=== PATIENT | female | born 1950 | race Caucasian/White ===

== ENCOUNTER 2017-09-25 16:07 | Inpatient (IN) | payer OTHER ==
[2017-09-25] VITALS (12 sets, daily range): BP systolic 99–143; BP diastolic 47–80
[~2017-09-25] VITALS: Ht 162.6 cm; Wt 65.8 kg
--- NOTE | ~2017-09-25 | H ---
[facility] [place] [address] HISTORY AND PHYSICAL Name: MANSI CEDENO Room #: 241-P [facility] IN .R.#: [id number] Admission: 09/25/17 Attend Phys: Reginaldo Hansen MD, Discharge: 09/27/17 Date of : 46 Report #: [id number] THIS REPORT FOR: //name// CC: Dr. Alon Sanchez The patient probably will be in the ICU. HISTORY OF PRESENT ILLNESS: The patient is a 67-year-old female well known to myself, Dr. Casarez and Dr. Sanchez in [place]. She comes in today with a 3-4 day history of acute worsening of her lower extremity pain. Decrease in temperature has been somewhat cool since , which is now 4 days ago. The patient has a history of left SFA atherectomy and stent placement, coated balloon angioplasty. On the right, this was also done for complete occlusion of the vessel. Has known occlusion of the right peroneal and 2-vessel runoff on the left. The CTA from [facility] yesterday showed complete occlusion of the right SFA stent with refilling of the popliteal artery. Constant pain has been occurring, worse at night with some numbness, although she does have some movement. She continues to smoke. She has been compliant with her medications. Also, has documented coronary artery disease with prior RCA and LAD stents. Had a negative nuclear stress test done fairly recently showing no significant ischemia. MEDICATIONS: Have been albuterol, amlodipine, aspirin, Plavix, lisinopril, gabapentin, methocarbamol, lisinopril 20, metoprolol 25, omeprazole, Compazine, simvastatin 20, tramadol, triamcinolone, Cipro. PAST MEDICAL HISTORY: Positive for coronary artery disease, peripheral vascular disease, hypertension, hypercholesterolemia, COPD, continued tobacco, carpal tunnel, cholecystectomy, cyst removal, and hysterectomy. SOCIAL HISTORY: Continue to smoke and occasional few drinks a week. She is retired. ALLERGIES: No known drug allergies. FAMILY HISTORY: Positive for premature coronary artery disease. REVIEW OF SYSTEMS: Essentially negative except for stated above, some intermittent constipation issues. PHYSICAL EXAMINATION: GENERAL: She is pleasant, alert. She is in no acute distress, but uncomfortable right lower extremity. VITAL SIGNS: Blood pressure 138/70, pulse 80s. HEENT: Eyes reveal xanthelasmas. Pharynx is clear. [facility] [address] [place] [address] HISTORY AND PHYSICAL Name: MANSI CEDENO Room #: 241-P [facility] IN [facility]#: [id number] Admission: 09/25/17 Attend Phys: Reginaldo Hansen MD, Discharge: 09/27/17 Date of : 46 Report #: [id number] NECK: Shows preserved upstrokes without JVD or bruits. LUNGS: Prolonged expiratory phase, but clear. CARDIOVASCULAR: Regular rate and rhythm, S1, S2 distant. ABDOMEN: Soft. No HSM or abdominal bruit. EXTREMITIES: Reveal no edema. Distal pulses, I cannot palpate the right lower extremity distal pulse and it is somewhat cool, although she does have sensation of touch. NEUROLOGIC: Nonfocal. She ambulates with a limp because of the pain in the right foot. The left lower extremity has 2+ pulses. SKIN: Warm and dry without xanthoma or ulcer. ASSESSMENT: 1. Subacute right lower extremity limb arterial occlusion. 2. Coronary artery disease, stable. 3. Hypertension. 4. Hypercholesterolemia. 5. Continued tobacco, chronic obstructive pulmonary disease. 6. Degenerative joint disease. RECOMMENDATIONS AND PLAN: The patient will proceed emergently to the [facility]. Dr. Casarez will attempt urgent intervention to the right lower extremity, I suspect with lytic therapy and hopeful for recanalization of this right SFA. We will obtain stat labs, which are pending. Risks, benefits, alternatives were discussed with the patient. She does elect to proceed on. Thank you for asking me to assist in the care of this patient. <ELECTRONICALLY SIGNED> By: Reginaldo Hansen MD, FACC 10/10/17 0844 [id number] Reginaldo Hansen MD, FACC /nt
[2017-09-25] MEDS ORDERED: UNICOMPLEX M TA1 TA1 PO (16:51)
[2017-09-25] MEDS ORDERED: VENTOLIN HFA INH8 GM INH (16:52)
[2017-09-25] MEDS ORDERED: TOPROL XL25 MG PO (16:53)
[2017-09-25] MEDS ORDERED: COMPAZINE10 MG PO (16:55)
[2017-09-25] MEDS ORDERED: NEURONTIN 300300 M1 PO (16:57)
[2017-09-25] MEDS ORDERED: AMLODIPINE BESY10 MG PO (16:57)
[2017-09-25] MEDS ORDERED: ROBAXIN 750 MG750 M1 PO (16:57)
[2017-09-25] MEDS ORDERED: PLAVIX 75 MG TA75 MG PO (16:58)
[2017-09-25] MEDS ORDERED: TRAMADOL 50 MG50 MG PO (16:58)
[2017-09-25] MEDS ORDERED: LASIX 20 MG TAB20 MG PO (16:59)
[2017-09-25] MEDS ORDERED: ZOCOR20 MG PO (16:59)
[2017-09-25] MEDS ORDERED: PRINIVIL20 MG PO (17:00)
[2017-09-25] MEDS ORDERED: CIPRO500 M1 PO (17:00)
[2017-09-26] VITALS (35 sets, daily range): BP systolic 87–160; BP diastolic 45–90
[2017-09-26] MEDS ORDERED: POTASSIUM CHLOR8 MEQ PO (02:47)
[2017-09-26] MEDS ORDERED: CITRACAL + D E1 EACH PO (02:50)
[2017-09-26] MEDS ORDERED: NYSTATIN15 G1 TOP (02:50)
[2017-09-26] MEDS ORDERED: PENLAC6.6 ML TOP (02:52)
[2017-09-26] MEDS ORDERED: TRIAMCINOLONE A80 G2 TOP (02:54)
[2017-09-26 04:00] LABS: HEMATOCRIT 36.8 % (37.0-47.0); HEMOGLOBIN 12.3 gm/dL (12.0-15.0); MCH 29.9 pg (26.0-34.0); MCHC 33.3 g/dL (28.0-37.0); MCV 89.7 fL (80.0-100.0); RBC 4.1 mil/uL (4.20-5.00); RDW 14.1 % (10.5-14.5); WBC 5.9 thou/uL (4.0-11.0)
[2017-09-26 04:05] LABS: APTT 28.9 Seconds (24.5-32.8); FIBRINOGEN 213.1 mg/dL (210-360)
[2017-09-26 04:07] LABS: CALCIUM 8.8 mg/dL (8.5-10.1); CREATININE 0.7 mg/dL (0.6-1.0); POTASSIUM 4.1 mmol/L (3.5-5.1)
[2017-09-27] VITALS (18 sets, daily range): BP systolic 115–155; BP diastolic 50–69
[2017-09-27] MEDS ORDERED: CLOPIDOGREL75 MG PO (07:59)
[2017-09-27] MEDS ORDERED: ELIQUIS5 MG PO ×2 (07:59)
== END 2017-09-27 09:30 | disposition home or self-care (01) | DRG 254 ==
LOC: 2N 16:07 → ICU 16:07 → ENTRNSPT 09-27 10:26 → CMPTRNSPT 09-27 10:27
PROVIDERS: Nuclear Medicine Nuclear Cardiology
PROC: 3E05317 Introduction of Other Thrombolytic into Peripheral Artery, Percutaneous Approach (ICD-10-PCS; principal; 2017-09-26)
PROC: B4181ZZ Fluoroscopy of Bilateral Renal Arteries using Low Osmolar Contrast (ICD-10-PCS; 2017-09-26)
PROC: 047 Lower Arteries, Dilation (ICD-10-PCS; 2017-09-26)
DX: I77.1 Stricture of artery (principal); M19.90 Unspecified osteoarthritis, unspecified site; I25.10 Atherosclerotic heart disease of native coronary artery without angina pectoris; I73.9 Peripheral vascular disease, unspecified; I10 Essential (primary) hypertension; E78.00 Pure hypercholesterolemia, unspecified; J44.9 Chronic obstructive pulmonary disease, unspecified; Z90.49 Acquired absence of other specified parts of digestive tract; Z82.49 Family history of ischemic heart disease and other diseases of the circulatory system; Z90.710 Acquired absence of both cervix and uterus; Z79.899 Other long term (current) drug therapy
CPT/HCPCS: 10078

== ENCOUNTER 2017-11-02 08:51 | Inpatient (IN) | payer OTHER ==
[2017-11-02] VITALS (16 sets, daily range): BP systolic 91–147; BP diastolic 49–74
[~2017-11-02] VITALS: Ht 162.6 cm; Wt 66.2 kg
[~2017-11-02 08:51] MED LIST: AMLODIPINE BESY10 MG PO; CIPRO500 M1 PO; CITRACAL + D E1 EACH PO; CLOPIDOGREL75 MG PO; COMPAZINE10 MG PO; ELIQUIS5 MG PO; LASIX 20 MG TAB20 MG PO; NEURONTIN 300300 M1 PO; NYSTATIN15 G1 TOP; PENLAC6.6 ML TOP; PLAVIX 75 MG TA75 MG PO; POTASSIUM CHLOR8 MEQ PO; PRINIVIL20 MG PO; ROBAXIN 750 MG750 M1 PO; TOPROL XL25 MG PO; TRAMADOL 50 MG50 MG PO; TRIAMCINOLONE A80 G2 TOP; UNICOMPLEX M TA1 TA1 PO; VENTOLIN HFA INH8 GM INH; ZOCOR20 MG PO
[2017-11-02 11:44] LABS: ABSOLUTE NEUTROPHILS 5.9 thou/uL (1.4-8.2); BASOPHILS 0.6 % (0.0-2.0); EOSINOPHILS 1.6 % (0.0-3.0); HEMATOCRIT 34.9 % (37.0-47.0); HEMOGLOBIN 11.8 gm/dL (12.0-15.0); LYMPHOCYTES 34.5 % (24.0-44.0); MANUAL DIFF NO; MCH 30.5 pg (26.0-34.0); MCHC 33.9 g/dL (28.0-37.0); MCV 89.9 fL (80.0-100.0); PLATELET COUNT 253 thou/uL (150-400); POLYS 56.3 % (36.0-66.0); RBC 3.88 mil/uL (4.20-5.00); RDW 13.7 % (10.5-14.5); WBC 10.4 thou/uL (4.0-11.0)
[2017-11-02 11:57] LABS: APTT 26.6 Seconds (24.5-32.8); PROTIME 9.9 Seconds (9.3-11.4)
[2017-11-02 12:07] LABS: CALCIUM 9.4 mg/dL (8.5-10.1); CREATININE 0.8 mg/dL (0.6-1.0); POTASSIUM 4.2 mmol/L (3.5-5.1)
[2017-11-03] VITALS (22 sets, daily range): BP systolic 92–127; BP diastolic 37–74
[2017-11-03 05:52] LABS: HEMATOCRIT 33.9 % (37.0-47.0); HEMOGLOBIN 11.4 gm/dL (12.0-15.0); MCH 30.6 pg (26.0-34.0); MCHC 33.7 g/dL (28.0-37.0); MCV 90.8 fL (80.0-100.0); RBC 3.73 mil/uL (4.20-5.00); RDW 13.9 % (10.5-14.5); WBC 8.6 thou/uL (4.0-11.0)
[2017-11-03 05:56] LABS: CALCIUM 8.5 mg/dL (8.5-10.1); CREATININE 0.8 mg/dL (0.6-1.0); POTASSIUM 4.3 mmol/L (3.5-5.1)
[2017-11-03 13:42] LABS: HEMATOCRIT 36.2 % (37.0-47.0); HEMOGLOBIN 11.9 gm/dL (12.0-15.0); MCH 29.9 pg (26.0-34.0); MCHC 32.9 g/dL (28.0-37.0); MCV 90.9 fL (80.0-100.0); RBC 3.98 mil/uL (4.20-5.00); RDW 13.4 % (10.5-14.5); WBC 11.1 thou/uL (4.0-11.0)
[2017-11-03 13:55] LABS: APTT 28.2 Seconds (24.5-32.8)
[2017-11-04] VITALS (16 sets, daily range): BP systolic 90–113; BP diastolic 36–86
[2017-11-04 03:51] LABS: HEMATOCRIT 32.3 % (37.0-47.0); MCH 30.6 pg (26.0-34.0); MCV 89.9 fL (80.0-100.0); RBC 3.59 mil/uL (4.20-5.00); RDW 13.6 % (10.5-14.5); WBC 10.4 thou/uL (4.0-11.0)
[2017-11-04 13:02] LABS: APTT 57.1 Seconds (24.5-32.8); INR 1.3; PROTIME 13.6 Seconds (9.3-11.4)
[2017-11-05 03:28] LABS: APTT 50.6 Seconds (24.5-32.8); INR 1.4; PROTIME 14.4 Seconds (9.3-11.4)
[2017-11-05 04:18] VITALS: BP 121/53
[2017-11-05 07:10] VITALS: BP 110/47
[2017-11-05] MEDS ORDERED: METOPROLOL SUCC25 M1 PO (08:10)
[2017-11-05] MEDS ORDERED: PLAVIX 75 MG TA75 M1 PO (08:10)
[2017-11-05] MEDS ORDERED: COUMADIN 5 MG TA5 M1 PO (08:10)
[2017-11-05] MEDS ORDERED: TOPROL XL25 MG PO (08:14)
[2017-11-05] MEDS ORDERED: LASIX 20 MG TAB20 MG PO (08:14)
[2017-11-05] MEDS ORDERED: CITRACAL + D E1 EACH PO (08:14)
[2017-11-05] MEDS ORDERED: PRINIVIL20 MG PO (08:14)
[2017-11-05] MEDS ORDERED: NEURONTIN 300300 M1 PO ×2 (08:14)
[2017-11-05] MEDS ORDERED: ZOCOR20 MG PO (08:14)
[2017-11-05] MEDS ORDERED: ENOXAPARIN80 MG/0.1 SUBQ (08:15)
[2017-11-05 09:35] VITALS: BP 110/47
== END 2017-11-05 12:40 | disposition home or self-care (01) | DRG 272 ==
LOC: ER 08:51 → EROBS 11:16 → ICU 11:16 → EROBS 12:11 → ICU 13:45 → 2N 11-04 16:25 → ENTRNSPT 11-05 12:18 → EDTRNSPTSTS 11-05 12:21 → 2N 11-05 12:40
PROVIDERS: Emergency Medicine; Internal Medicine Cardiovascular Disease; Nuclear Medicine Nuclear Cardiology; Nurse Practitioner Gerontology
PROC: 3E05317 Introduction of Other Thrombolytic into Peripheral Artery, Percutaneous Approach (ICD-10-PCS; principal; 2017-11-02)
PROC: B4181ZZ Fluoroscopy of Bilateral Renal Arteries using Low Osmolar Contrast (ICD-10-PCS; 2017-11-02)
PROC: 04VK3DZ Restriction of Right Femoral Artery with Intraluminal Device, Percutaneous Approach (ICD-10-PCS; 2017-11-03)
DX: I70.201 Unspecified atherosclerosis of native arteries of extremities, right leg (principal); I25.10 Atherosclerotic heart disease of native coronary artery without angina pectoris; I10 Essential (primary) hypertension; E78.00 Pure hypercholesterolemia, unspecified; J44.9 Chronic obstructive pulmonary disease, unspecified; G89.29 Other chronic pain; M54.9 Dorsalgia, unspecified; F17.210 Nicotine dependence, cigarettes, uncomplicated; M19.90 Unspecified osteoarthritis, unspecified site; G62.9 Polyneuropathy, unspecified; Z71.6 Tobacco abuse counseling; Z95.5 Presence of coronary angioplasty implant and graft; Z90.49 Acquired absence of other specified parts of digestive tract; Z90.710 Acquired absence of both cervix and uterus; Z79.899 Other long term (current) drug therapy
CPT/HCPCS: 10078

== ENCOUNTER 2019-02-25 09:34 | Inpatient (IN) | payer OTHER ==
[~2019-02-25] VITALS: Ht 162.6 cm; Wt 73.5 kg
[2019-02-25] VITALS (17 sets, daily range): BP systolic 118–141; BP diastolic 40–66
[~2019-02-25 09:34] MED LIST changes: +COUMADIN 5 MG TA5 M1 PO; +ENOXAPARIN80 MG/0.1 SUBQ; +METOPROLOL SUCC25 M1 PO; +PLAVIX 75 MG TA75 M1 PO
[2019-02-25 10:32] LABS: HEMOGLOBIN 9.8 gm/dL (12.0-15.0); MCH 23.7 pg (26.0-34.0); MCHC 31.6 g/dL (28.0-37.0); MCV 74.9 fL (80.0-100.0); RBC 4.14 mil/uL (4.20-5.00); RDW 16.8 % (10.5-14.5); WBC 9.5 thou/uL (4.0-11.0)
[2019-02-25 10:42] LABS: CALCIUM 9.3 mg/dL (8.5-10.1); CREATININE 0.9 mg/dL (0.6-1.0); POTASSIUM 3.7 mmol/L (3.5-5.1)
[2019-02-25 10:46] LABS: APTT 31.9 Seconds (24.5-32.8); INR 1.3; PROTIME 13.4 Seconds (9.3-11.4)
[2019-02-25] MEDS ORDERED: LASIX 40 MG TAB40 M1 PO (11:17)
[2019-02-25] MEDS ORDERED: NEURONTIN 300300 M1 PO (11:21)
[2019-02-25] MEDS ORDERED: KETOCONAZOLE15 GM (11:24)
[2019-02-25] MEDS ORDERED: OMEPRAZOLE40 MG PO (11:29)
[2019-02-25] MEDS ORDERED: COMPAZINE10 MG PO (11:31)
[2019-02-25] MEDS ORDERED: VENTOLIN HFA INH8 GM (11:43)
[2019-02-25] MEDS ORDERED: AMLODIPINE BESY10 MG PO (11:46)
--- NOTE | 2019-02-25 18:06 | NUR ---
PATIENT TRANSFERRED FROM THE EP LAB POST PROCEDURE. ALERT AND ORIENTED X4, COMPLAINING OF PAIN IN BACK AND RIGHT LEG. RIGHT LEG COOL TO TOUCH. SINUS BRADYCARDIA ON CONGRESSIONAL REPRESENTATIVE. ON ROOM AIR, 2L WHILE ASLEEP. TOLERATING REGULAR DIET. ON BEDREST. EDUCATED NOT TO BEND LEFT LEG. PATIENT UPDATED ON THE PLAN OF CARE. NO SIGNS OF ACUTE DISTRESS NOTED AT THIS TIME. WILL CONTINUE TO MONITOR.
[2019-02-26] VITALS (95 sets, daily range): BP systolic 116–166; BP diastolic 41–114
[2019-02-26 06:01] LABS: HEMATOCRIT 29.1 % (37.0-47.0); HEMOGLOBIN 9.3 gm/dL (12.0-15.0); MCHC 31.8 g/dL (28.0-37.0); MCV 75.5 fL (80.0-100.0); RBC 3.86 mil/uL (4.20-5.00); RDW 16.7 % (10.5-14.5); WBC 10.4 thou/uL (4.0-11.0)
[2019-02-26 06:17] LABS: CALCIUM 8.5 mg/dL (8.5-10.1); CREATININE 0.9 mg/dL (0.6-1.0); POTASSIUM 4.2 mmol/L (3.5-5.1)
--- NOTE | 2019-02-26 07:24 | NUR ---
ASSUMED CARE @ 1900 02/25/19, PT ASSESSMENTS AND VSS COMPLETE PER ICU PROTOCOL, PT ALERT AND ORIENTED X 4, PT ABLE TO FOLLOW COMMANDS, MORPHINE AND HYDROCODONE GIVEN TO HER DURING THE SHIFT. PT IN SR- SB ON THE MONITOR, PT ON TPA AND INTERGRELIN RUNNING PER ORDERS. INTERGRELIN ORDER ERROR NOTED, PHARMACY CALLED TO RECTIFY, SPOKE WITH GLORIA PHARMACIST, CORRECT ORDER RESTORED. PT ON RA WHILE AWAKE AND 2L ASLEEP SATS IN THE HIGH 90'S. PT NPO AFTER MIDNIGHT, BEDPAN USED URINARY ELIMINATION. FALL PRECAUTIONS IN PLACE, BLEEDING PRECAUTIONS IN PLACE. PLAN OF CARE- CONT TO MONITOR.
[2019-02-26 12:58] LABS: INR 1.5; PROTIME 15.6 Seconds (9.3-11.4)
[2019-02-26 13:08] LABS: APTT 87.2 Seconds (24.5-32.8)
--- NOTE | 2019-02-26 22:50 | NUR ---
ASSUMED CARE OF PATIENT AT 1900. VSS. ORDERS OBTAINED TO TRANSFER TO CCU. C/O PAIN. STATES 09/04. HYDROCODONE GIVEN. SLEEPING UNTIL TRANSFERRED TO . REPORT GIVEN TO FABRIZIO GILBERT RN. ALL BELONGINGS WITH PATIETNT.
[2019-02-27 04:29] VITALS: BP 176/59
[2019-02-27 04:58] LABS: HEMATOCRIT 27.2 % (37.0-47.0); HEMOGLOBIN 8.7 gm/dL (12.0-15.0); MCV 74.9 fL (80.0-100.0); RBC 3.63 mil/uL (4.20-5.00); RDW 16.8 % (10.5-14.5); WBC 9.9 thou/uL (4.0-11.0)
[2019-02-27 05:09] LABS: INR 1.1
[2019-02-27 05:18] LABS: CALCIUM 8.8 mg/dL (8.5-10.1); CREATININE 0.8 mg/dL (0.6-1.0); POTASSIUM 3.7 mmol/L (3.5-5.1)
[2019-02-27 08:00] VITALS: BP 123/44
[2019-02-27 12:40] VITALS: BP 140/55
[2019-02-27 12:43] VITALS: BP 140/55
[2019-02-27 16:00] VITALS: BP 135/58
[2019-02-27 19:04] VITALS: BP 129/46
--- NOTE | 2019-02-27 19:35 | NUR ---
ASSUMED CARE OF PT AT SHIFT CHANGE. ASSESSMENTS CHARTED. MEDS GIVEN PER JAN. PT ALERT AND ORIENTED, VSS, C/O BACK PAIN MANAGED WITH PO AND IV MEDS. PULSES 2+ RADIAL, 2+ RIGHT DORALIS PEDIS, 1+ LEFT DORSALIS PEDIS, PALPABLE. O2 SATS WNL ON ROOM AIR, DENIES CHEST PAIN, NO S/SX OF CARD OR RESP DISTRESS NOTED. APTT LAB THIS AM-- SEE RESULTS, TITRATED PER PROTOCOL. LAST DRAW AT 1400 THERAPEUTIC PER PROTOCOL, NEXT REDRAW IN AM. HEPARIN GTT CONTINUES. PT UP SBA TO BATHROOM, TOLERATES WELL. APPETITE ADEQUATE. DENIES CONCERNS AT THIS TIME. PLAN IS FOR POSSIBLE DC IN AM. WILL CONT TO MONITOR AND FOLLOW POC.
[2019-02-28 05:42] VITALS: BP 150/55
--- NOTE | 2019-02-28 05:46 | NUR ---
ASSUMED PT'S CARE AROUND 1910; PT. ON CHAIR; NO C/O PAIN; DURING ASSESSMENT PT. C/O PAIN; PRN IV PAIN MEDICATION GIVEN; EDUCATED ABOUT PAIN MANAGEMENT; ST. UNDERSTANDING; SLEEPING DURING PAIN REASSESSMENT; L. GROIN AREA SHOWED OLD DRAINAGE; NO HEMATOMA; PULSES PRESENT; ABLE TO REST MOST OF THE NIGHT; REQUESTED PRN PAIN MEDICATION AFTER AMBULATING TO RESTROOM; ASSESSMENT CHARGED; FOLLOWING POC; ON HEPARIN GTT WITH NO CHANGE PER PROTOCOL; WILL KEEP MONITORING; WILL PASS ON REPORT.
[2019-02-28 08:00] VITALS: BP 145/61
[2019-02-28] MEDS ORDERED: CLOPIDOGREL75 MG PO (08:07)
[2019-02-28 09:01] LABS: INR 1.7; PROTIME 17.3 Seconds (9.3-11.4)
[2019-02-28] MEDS ORDERED: COUMADIN 5 MG TA5 M1 PO (09:53)
[2019-02-28 12:00] VITALS: BP 133/49
[2019-02-28 12:15] VITALS: BP 133/49
[2019-02-28 15:50] VITALS: BP 133/49
== END 2019-02-28 17:05 | disposition home or self-care (01) | DRG 254 ==
LOC: SPEC 09:34 → ICU 16:46 → 2N 02-26 22:41 → ENTRNSPT 02-28 16:11 → 2N 02-28 17:05
PROVIDERS: Nuclear Medicine Nuclear Cardiology; Nurse Practitioner Adult Health; Nurse Practitioner Gerontology; ADMIT Internal Medicine Cardiovascular Disease
PROC: B4101ZZ Fluoroscopy of Abdominal Aorta using Low Osmolar Contrast (ICD-10-PCS; principal; 2019-02-25)
PROC: B4181ZZ Fluoroscopy of Bilateral Renal Arteries using Low Osmolar Contrast (ICD-10-PCS; principal; 2019-02-25)
PROC: 047K3D1 Dilation of Right Femoral Artery with Intraluminal Device, using Drug-Coated Balloon, Percutaneous Approach (ICD-10-PCS; 2019-02-26)
PROC: 3E05317 Introduction of Other Thrombolytic into Peripheral Artery, Percutaneous Approach (ICD-10-PCS; 2019-02-26)
DX: T82.818A Embolism due to vascular prosthetic devices, implants and grafts, initial encounter (principal); I25.10 Atherosclerotic heart disease of native coronary artery without angina pectoris; I73.9 Peripheral vascular disease, unspecified; I10 Essential (primary) hypertension; E78.00 Pure hypercholesterolemia, unspecified; J44.9 Chronic obstructive pulmonary disease, unspecified; G89.29 Other chronic pain; M54.9 Dorsalgia, unspecified; M19.90 Unspecified osteoarthritis, unspecified site; E78.5 Hyperlipidemia, unspecified; I77.1 Stricture of artery; D63.8 Anemia in other chronic diseases classified elsewhere; Z71.6 Tobacco abuse counseling; Z95.5 Presence of coronary angioplasty implant and graft; Z90.49 Acquired absence of other specified parts of digestive tract; Z90.710 Acquired absence of both cervix and uterus; Z87.891 Personal history of nicotine dependence
CPT/HCPCS: 10078; 10081

== ENCOUNTER 2019-07-24 11:25 | Inpatient (IN) | payer OTHER ==
[2019-07-24] VITALS (17 sets, daily range): BP systolic 97–161; BP diastolic 41–62
[~2019-07-24] VITALS: Ht 162.6 cm; Wt 69.9 kg
[~2019-07-24 11:25] MED LIST changes: +KETOCONAZOLE15 GM; +LASIX 40 MG TAB40 M1 PO; +OMEPRAZOLE40 MG PO; +VENTOLIN HFA INH8 GM
[2019-07-24 12:16] LABS: HEMATOCRIT 26.8 % (37.0-47.0); HEMOGLOBIN 8.3 gm/dL (12.0-15.0); MCH 20.6 pg (26.0-34.0); MCHC 31.1 g/dL (28.0-37.0); MCV 66.3 fL (80.0-100.0); RBC 4.05 mil/uL (4.20-5.00); RDW 19.4 % (10.5-14.5); WBC 6.9 thou/uL (4.0-11.0)
[2019-07-24 12:24] LABS: CALCIUM 9.3 mg/dL (8.5-10.1); CREATININE 0.7 mg/dL (0.6-1.0); POTASSIUM 3.5 mmol/L (3.5-5.1); PROTIME 10.1 Seconds (9.3-11.4)
[2019-07-25] VITALS (19 sets, daily range): BP systolic 105–158; BP diastolic 39–91
--- NOTE | 2019-07-25 02:43 | NUR ---
At the start of the shift, patient was rating her RLE pain at 10/10, she was receiving IVP morphine, as ordered, with little/no pain relief, she was crying out and would not redirect. A call was placed to cardiology, orders were received, Dr Hansen did visit with the patient. Pt has been resting well over the last 4 hours. Her assessment is benign, VSS, the pt has a left femoral sheath in place, infusing alteplase and integrilin. Her RLE is warmer now, pulses are present without edema. Will continue to monitor and treat for pain as needed.
[2019-07-25 05:59] LABS: HEMOGLOBIN 6.8 gm/dL (12.0-15.0)
[2019-07-25 06:00] LABS: HEMATOCRIT 21.9 % (37.0-47.0)
[2019-07-25 06:11] LABS: CALCIUM 8.2 mg/dL (8.5-10.1); CREATININE 0.8 mg/dL (0.6-1.0); POTASSIUM 3.4 mmol/L (3.5-5.1)
[2019-07-25 08:43] LABS: HEMATOCRIT 23.3 % (37.0-47.0); HEMOGLOBIN 7.1 gm/dL (12.0-15.0); MCH 20.5 pg (26.0-34.0); MCHC 30.4 g/dL (28.0-37.0); MCV 67.4 fL (80.0-100.0); RBC 3.45 mil/uL (4.20-5.00); RDW 19.8 % (10.5-14.5)
[2019-07-25 08:51] LABS: CALCIUM 8.5 mg/dL (8.5-10.1); CREATININE 0.8 mg/dL (0.6-1.0); POTASSIUM 3.4 mmol/L (3.5-5.1)
--- NOTE | 2019-07-25 09:14 | NUR ---
Nutrition: Consult received stating "not needed". Pt admit with DVT in right leg. BMI is WNL. No recent weight changes. Regular diet ordered but being held due to pt to return to IR today to evaluate if TPA worked. Consider low risk.
--- NOTE | 2019-07-25 12:23 | NUR ---
INITIAL ASSESSMENT: Received consult due to pt living at home alone. CARLOS ENRIQUE reviewed chart. Pt was a direct admission from Dr. Hansen's office yesterday due to acute RLE art occlusion. Pt may go back to IR today and may need blood transfusion. SW met with pt at bedside. Introduced role of SW. Pt is alert/orientated x 4. Pt reports she lives at home alone in [place]. 3 steps to enter the home. No steps inside. Prior to admission, pt was independent with ADLs. Pt does have a walker to use if needed. Pt's son, dtr-in-law and grandchildren live down the road from her, and are able to assist pt if needed. Pt works 4-5 days a week at [employer]. Pt remains active and drives. Pt's PCP is Dr. Alon Sanchez. Pt has used HH in the past, but is unsure of provider. Plan is for pt to return home when medically stable. Pt's family will be able to provide transportation home. SW is following to assist as needed with discharge planning.
--- NOTE | 2019-07-25 15:32 | NUR ---
ASSUMED CARE THIS AM. AWAKE AND RESTLESS IN BED. COMPLAINING OF LOWER BACK PAIN. BLE WITH PALPABLE PULSES AND WARM AND PINK. L GROIN SHEATH WITH DRESSING CDI AND NO HEMATOMA. SR ON MONITOR. NO COMPLAINTS OF NAUSEA OR CP. INTEGRILLIN AND ALTAPACE INFUSING TO SIDEPORT OF SHEATH.
--- NOTE | 2019-07-25 15:35 | NUR ---
14:00 TRANSPORTED DOWN TO IR FOR INTERVENTION ON MONITOR WITH INTEGRILLIN INFUSING AT 1MCG/KG/MIN.
--- NOTE | 2019-07-25 16:30 | NUR ---
1545: BACK FROM IR: L GROIN SHEATH REMOVED AND CLOSED WITH FISH. SOFT WITH NO HEMATOMA. WILL INFUSE 1 UNIT OF PRBCS FOR HGB 7.1. BEDREST WITH LEFT LEG STRAIGHT UNTIL MIDNIGHT.
[2019-07-25] MEDS ORDERED: ENOXAPARIN80 MG/0.1 SUBQ (16:42)
[2019-07-26 04:48] LABS: INR 1.1; PROTIME 11.4 Seconds (9.3-11.4)
--- NOTE | 2019-07-26 05:59 | NUR ---
Pt has been resting well through the night, she does C/O low back pain, from her bedrest restriction, she has been treated twice with PO prn with good results. Pt has had a low grade temp, otherwise her vitals have been stable. The left groin sheath site dressing is C/D/I, no hematoma is noted and she has +pulses to BLE. Her assessment is benign, she voids per bedpan x 2, and is taking food and fluids well. Pt was asked about any previous use of the lovenox, she was briefly instructed and the injection was administered. The bed is in the low/locked position, the call light is within reach. Will continue to monitor.
[2019-07-26 11:03] LABS: ABSOLUTE NEUTROPHILS 7.1 thou/uL (1.4-8.2); BASOPHILS 2.1 % (0.0-2.0); EOSINOPHILS 0.3 % (0.0-3.0); HEMATOCRIT 28.7 % (37.0-47.0); HEMOGLOBIN 8.9 gm/dL (12.0-15.0); LYMPHOCYTES 21.8 % (24.0-44.0); MCH 21.4 pg (26.0-34.0); MCHC 31.2 g/dL (28.0-37.0); MCV 68.7 fL (80.0-100.0); MONOCYTES 7.8 % (1.0-8.0); PLATELET COUNT 237 thou/uL (150-400); RBC 4.17 mil/uL (4.20-5.00); RDW 20.3 % (10.5-14.5); WBC 10.4 thou/uL (4.0-11.0)
[2019-07-26 11:12] LABS: ALBUMIN 2.8 g/dL (3.4-5.0); CALCIUM 8.2 mg/dL (8.5-10.1); CREATININE 0.7 mg/dL (0.6-1.0); POTASSIUM 3.7 mmol/L (3.5-5.1); TOTAL BILIRUBIN 0.6 mg/dL (<0.1-1.0); TOTAL PROTEIN 5.9 g/dL (6.4-8.2)
[2019-07-26 11:35] LABS: ANISOCYTOSIS 2+; HYPOCHROMASIA 2+; MICROCYTES 2+; POLYCHROMASIA OCCASIONAL
--- NOTE | 2019-07-26 16:31 | NUR ---
PT IS AWAKE AND ALERT AND ORIENTED X4. LUNGS ARE DIMINISHED ON 2LITERS NASAL CANULA. SINUS RHYTHM ON THE DISTRICT LOSS PREVENTION MANAGER . ON A REGULAR DIET. USES THE BEDPAN TO VOID. TEMPERATURE NOTED AND BLOOD CULTURES OBTAINED. LEFT GROIN SITE IS DRY AND INTACT. FEET ARE WARM PULSES PRESENT. COMPLAINS OF BACK PAIN AND GROIN PAIN. PAIN MEDS GIVEN SEE MAR FOR TIME OF ADMINISRATION. WILL CONTINUE TO ASSESS AND MONITOR PER NURSING. DR. AYALA AWARE OF PT'S TEMP AND PENDING CULTURES.
--- NOTE | 2019-07-26 23:43 | NUR ---
2330 PT ARRIVED FROM ICU A TRANSFER. IN STABLE CONDITION. PT ORIENTED TO ROOM, PLACED ON TELEMETRY AND ASSUMED CARE. PT JUST SIGNED CONSENTS FOR TELE INTERFERENCE ACKNOWLEGMENT AND A COUPLE OTHERS.
[2019-07-26 23:58] VITALS: BP 132/65
[2019-07-27 03:20] VITALS: BP 139/64
--- NOTE | 2019-07-27 06:18 | NUR ---
PT RESTING IN BED HAS BEEN IN AND OUT OF SLEEP. PT WAS TRANSFERED IN MIDDLE OF NIGHT FROM ICU. SR ON MONITOR. LEFT GROIN SITE CDI, SOFT. REQUIRED ONE DOSE OF PAIN MEDICATION FOR LOWER EXT.
[2019-07-27 07:12] VITALS: BP 139/48
[2019-07-27 07:23] LABS: INR 1.5; PROTIME 15.7 Seconds (9.3-11.4)
--- NOTE | 2019-07-27 08:19 | NUR ---
PATIENT CARE ASSUMED, ASSESSMENT CHARTED, VSS, ALERT AND ORIENTED X 4, UP TO BEDSIDE COMMMODE AND CHAIR, NO COMPLAINTS OF PAIN, NO NEEDS VOICED, WILL CONTINUE TO MONITOR.
[2019-07-27 11:46] VITALS: BP 104/53
[2019-07-27 15:51] VITALS: BP 116/49
[2019-07-27 16:06] LABS: URINE BLOOD NEGATIVE (Negative); URINE CLARITY CLEAR; URINE COLOR YELLOW; URINE GLUCOSE-RANDOM* NEGATIVE (Negative); URINE KETONES 2+ (Negative); URINE NITRITE-REFLEX NEGATIVE (Negative); URINE PROTEIN (DIPSTICK) NEGATIVE (Negative)
[2019-07-27 16:08] LABS: ICTOTEST (BILI CONFIRMATORY) Negative (Negative); URINE BILIRUBIN NEGATIVE (Negative); URINE LEUKOCYTES-REFLEX 1+ (Negative)
[2019-07-27 16:20] LABS: SQUAMOUS 4-10 Moderate /LPF (0-3)
[2019-07-27 16:21] LABS: CRYSTALS None Seen /LPF (None Seen); HYALINE CASTS 0-3 Few /LPF (None Seen); MUCUS 0-3 Light strn/LPF (None Seen); URINE RBC None Seen /HPF (0-2); URINE WBC-REFLEX 6-15 Few /HPF (0-5)
--- NOTE | 2019-07-28 02:01 | NUR ---
ASSESSMENTS CHARTED. HAD CATH YESTERDAY VIA RIGHT GROIN. ACCESS SITE IS CLEAN DRY INTACT, SOFT. PATIENT C/O PAIN IN LEFT LEG. UNABLE TO PLACE FULL WEIGHT ON LEFT LEG, SWIVELS TO BSC. C/O PAIN 10/10 AFTER MOVING FROM COMMODE BACK TO BED. MEDS CHARTED. FALL PRECAUTIONS IN PLACE.
[2019-07-28 04:10] VITALS: BP 142/60
[2019-07-28 07:25] LABS: INR 1.6; PROTIME 16.5 Seconds (9.3-11.4)
[2019-07-28 08:21] VITALS: BP 126/52
--- NOTE | 2019-07-28 10:48 | NUR ---
AAOX4. CALM, COOPERATIVE. ASSISTED TO BR TO VOID. MEDICATED FOR PAIN ORDERED. NO S/S HEMATOMA LEFT GROIN. COAGS NOTED. FALL PRECAUTIONS IN PLACE; WILL CONTINUE TO MONITOR.
[2019-07-28 11:03] VITALS: BP 126/52
[2019-07-28 12:04] VITALS: BP 124/58
[2019-07-28 16:46] VITALS: BP 118/50
[2019-07-28 19:48] VITALS: BP 129/59
[2019-07-29 03:22] VITALS: BP 122/42
--- NOTE | 2019-07-29 04:32 | NUR ---
PT HAS BEEN UP OUT OF BED TONIGHT TO WASH UP IN THE BATHROOM. PT REMAINS ON RA. PT STILL LIGHT TOUCH TO LEFT LEG SO AMBULATING WITH WALKER. PT REQUIRED A COUPLE DOSES OF PAIN MEDS TONIGHT. AM LABS TO BE DRAWN AND REVIEWED. PT LOW GRADE TEMP MAX OF 100.2 LAST CHECK 99.1.
[2019-07-29 04:55] LABS: INR 1.8; PROTIME 18.7 Seconds (9.3-11.4)
[2019-07-29 07:32] LABS: HEMATOCRIT 26.3 % (37.0-47.0); HEMOGLOBIN 8.1 gm/dL (12.0-15.0); MCH 21.4 pg (26.0-34.0); MCHC 30.7 g/dL (28.0-37.0); MCV 69.7 fL (80.0-100.0); RBC 3.78 mil/uL (4.20-5.00); RDW 20.6 % (10.5-14.5); WBC 6.6 thou/uL (4.0-11.0)
--- NOTE | 2019-07-29 07:37 | EKG ---
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[employer]: RIMA : 1950 Requested By: Reginaldo Hansen Order Number: [id number] MD: Olivier Lema Measurements Intervals [place] Rate: 73 P: -45 WY: 119 QRS: 45 QRSD: 99 T: 14 QT: 413 QTc: 456 Interpretive Statements Sinus rhythm Nonspecific ST segment abnormality Compared to ECG 04/01/2008 07:41:46 No significant change was found Electronically Signed On 07-29-2019 7:37:28 CDT by Olivier Lema [email or web address] ��������������������������������������������� <ELECTRONICALLY SIGNED> ���������������������������������������� By: Olivier Lema MD, [facility] ��������������������������������������������� 07/29/19 0737 [id number] Olivier Lema MD, [facility] /EPI
[2019-07-29 08:06] VITALS: BP 124/44
[2019-07-29 11:27] VITALS: BP 107/46
[2019-07-29 15:09] VITALS: BP 114/49
[2019-07-29 19:25] VITALS: BP 147/57
--- NOTE | 2019-07-30 05:08 | NUR ---
PAIN FAIRLY CONTROLLED WITH OXYCODONE.UP TO THE BEDSIDE COMMODE.MONITOR SHOWS SR.POSSIBLE DISCHARGE TODAY.WILL MONITOR AND CONTINUE POC.
[2019-07-30 05:13] VITALS: BP 145/65
[2019-07-30 05:16] LABS: PROTIME 20.7 Seconds (9.3-11.4)
[2019-07-30 07:35] VITALS: BP 135/73
[2019-07-30] MEDS ORDERED: TOPROL XL25 MG PO (07:51)
[2019-07-30 08:01] VITALS: BP 135/73
[2019-07-30] MEDS ORDERED: PREDNISONE 20 M20 MG PO (09:58)
[2019-07-30] MEDS ORDERED: AUGMENTIN 875-1 EACH PO (09:58)
--- NOTE | 2019-07-30 10:33 | NUR ---
ASSESSMENT CHARTED. PT ALERT AND ORIENTED. VSS. REPORT HAVING LEFT LEG WITH TOUCH BUT DENIED THE NEED FOR PAIN MED. SEEN BY DR. PEPE AND DR. RUSSELL. ORDERS GIVEN TO DISCHARGE PT TO HOME. DISCHARGE INSTRUCTIONS GIVEN TO PT. PT VERBERLIZED UNDERSTANDING.
--- NOTE | 2019-07-30 17:11 | H ---
[facility] [place] [address] HISTORY AND PHYSICAL Name: MANSI CEDENO Room #: 201-P [facility] IN .R.#: [id number] Admission: 07/24/19 ������������������ Attend Phys: Juwan Casarez MD Discharge: 07/30/19 ������������������ Date of : 48 Report #: [id number] THIS REPORT FOR: //name// CC: Juwan Roman DATE OF SERVICE: 07/24/2019 HISTORY OF PRESENT ILLNESS: The patient is a 69-year-old female who was admitted from the office this morning after what appears to be a subacute or acute arterial occlusion of the right lower extremity. She has had prior endograft right SFA stent graft placed. Unfortunately, her anticoagulation was interrupted for EGD and colonoscopy this week. She has been off 5 days of anticoagulation and polypectomy was done yesterday. Was going to restart the Coumadin today being had acute onset of pain and some chronic pain in the right lower extremity. Came to the office this morning, which showed occlusion of the right SFA and taken emergently to the lab with Dr. Casarez with the left groin approach and found to have occlusion of the right SFA stent graft. Thrombolysis with lytics and Integrilin are currently dripping. She is in the ICU. The only issue has been pain. She remains hemodynamically stable. She is anemic and has been chronically anemic, this is the reason for the GI workup, hemoglobin is running 8-9. Creatinine is normal. She has had stable coronary artery disease with remote RCA and LAD stents. She has been compliant with her medications. These have included albuterol, amlodipine 10, Plavix 75, warfarin, which has been held, gabapentin, Lasix 40, Ketaconazole topically, lisinopril 20, metoprolol 25, multivitamin, omeprazole, Compazine, simvastatin 20, tramadol and Kenalog. PAST MEDICAL HISTORY: Positive for the peripheral disease as described above, coronary artery disease, hypertension, hypercholesterolemia, COPD, quit tobacco 18 months ago, osteoporosis, DJD, carpal tunnel, cholecystectomy, has internal hemorrhoid problem with some chronic rectal bleeding. SOCIAL HISTORY: She lives independently in [place]. She is a social drinker, occasional Jv oNlan, quit tobacco in 11/2017. She is . Children are close by her. ALLERGIES: No known drug allergies. REVIEW OF SYSTEMS: Essentially negative except for stated above, chronic anemia, mild dyspnea. PHYSICAL EXAMINATION: GENERAL: Pleasant, alert. VITAL SIGNS: Pulse 70s, blood pressure 118/80. [address] [address] HISTORY AND PHYSICAL Name: MANSI CEDENO Room #: 201-P [facility] IN [facility]#: [id number] Admission: 07/24/19 ������������������ Attend Phys: Juwan Casarez MD Discharge: 07/30/19 ������������������ Date of : 46 Report #: [id number] HEENT: Eyes reveal xanthelasmas. Pharynx is clear. NECK: Shows preserved upstrokes. There are bilateral bruits noted. LUNGS: Prolonged expiratory phase, but clear. CARDIOVASCULAR: Regular rate and rhythm, S1, S2 distant. ABDOMEN: Soft. No HSM or abdominal bruit. EXTREMITIES: The right lower extremity, right foot, I cannot palpate DP or PT. It is slightly cooler than the left, but is warming according to nursing. Catheters in place in the left groin. There is no hematoma formation. There is faintly palpable distal pulse in the left lower extremity. SKIN: Warm and dry. There is no ulcer formation. MUSCULOSKELETAL: Generalized arthritic changes. NEUROLOGIC: Intact. ASSESSMENT: 1. Acute right lower extremity arterial occlusion (off anticoagulation x 5 days for gastrointestinal procedure). 2. Successful ongoing current thrombolysis of the right SFA and thromboembolic event with lytics and Integrilin infusion, showing improvement in hemodynamic stability. 3. Coronary artery disease, stable with prior coronary stents. 4. Chronic obstructive pulmonary disease with prior tobacco. 5. Hypertension. 6. Hypercholesterolemia. 7. Peripheral neuropathy. 8. Gastroesophageal reflux disease. RECOMMENDATIONS AND PLAN: We will continue lytics overnight back to the catheterization lab with Dr. Casarez. So far been looks like we are having some success and reperfusion. She remained hemodynamically stable. Pain control is an issue also. We will restart medications. We will follow her and a.m. lab to follow. Thank you for asking me to assist in the take care of this patient. ��������������������������������������������� <ELECTRONICALLY SIGNED> ���������������������������������������� By: Reginaldo Hansen MD, FACC ��������������������������������������������� 07/30/19 1711 28 Reginaldo Hansen MD, FACC /nt
--- NOTE | 2019-08-04 09:17 | D ---
[facility] [place] [address] DISCHARGE SUMMARY Name: MANSI CEDENO Room #: 201-P [facility] IN .R.#: [id number] Admission: 07/24/19 ������������������ Attend Phys: Juwan Casarez MD Discharge: 07/30/19 ������������������ Date of : 46 Report #: [id number] THIS REPORT FOR: //name// CC: Juwan Casarez [facility] COURSE: The patient was admitted for acute occlusion of the right SFA graft. This was lysed and redilated by Dr. Casarez. An excellent result was obtained. Restarted on warfarin rightly and restarted on warfarin with Lovenox as a bridge. She is therapeutic today. She would have been ____ but then had a significant flare of some sort of inflammatory arthritis, elevated sedimentation rate and CRP. She was initiated on prednisone, steroids and antibiotics. She has finally improved and ambulating. Her AFib rates have been elevated, so we have increased the Toprol to 75 mg a day, Coumadin/warfarin, prednisone taper 60 mg b.i.d., 40 for 2 days, 20 for 2 days, and 10 for 2 days. Atorvastatin 10, Plavix 75, amlodipine 10, famotidine, gabapentin, oxycodone. DISCHARGE DIAGNOSES: 1. Acute arterial occlusion of the right lower extremity with successful lysis and re-dilatation. 2. Coronary artery disease. 3. Chronic obstructive pulmonary disease. 4. Hypertension. 5. Hypercholesterolemia. 6. Chronic anemia. 7. Inflammatory arthritis with possible gout/rheumatoid flare. Followup scheduled in [address] Casarez. I will see the patient at that followup ____ after that 4 months. She is to call with any issues of acute pain and notify us by phone of her progress after the steroid taper is completed. Thank you for assisting me in the care of this patient. ��������������������������������������������� <ELECTRONICALLY SIGNED> ���������������������������������������� By: Reginaldo Hansen MD, FACC ��������������������������������������������� 08/04/19 0917 0957 [id number] Reginaldo Hansen MD, FACC /nt
--- NOTE | 2019-08-08 11:03 | HC ---
[facility] [place] [address] CONSULTATION Name: MANSI CEDENO Room #: 201-P [facility] IN M.R.#: [id number] Admission: 07/24/19 ������������������ Attend Phys: Juwan Casarez MD Discharge: 07/30/19 ������������������ Date of : 46 Report #: [id number] THIS REPORT FOR: //name// CC: Juwan Sanchez DATE OF SERVICE: 07/28/2019 ADMITTING DIAGNOSIS: Lower extremity arterial occlusion. DISCHARGE DIAGNOSES: 1. Lower extremity arterial occlusion. 2. Peripheral vascular disease. 3. Dyslipidemia. 4. Hypertension. DISCHARGE MEDICATIONS: As noted in the discharge summary. PROCEDURES PERFORMED: Lower extremity angiogram and thrombolysis. FOLLOWUP: 1. Dr. Mckeon in [address] Hansen as needed. BRIEF CLINICAL HISTORY: See history and physical in the chart. HOSPITAL COURSE: The patient was admitted to the hospital and underwent a lower extremity angiography and thrombolysis. She had no significant complications from this procedure and had a recheck with complete resolution of thrombus with good antegrade flow. She was scheduled to be discharged when she developed temperature and no fever. Evaluation and blood cultures yielded no significant infectious etiology and no growth was noted. She was then encouraged for deep breathing with Inspiron and improved the temperature. She is now being discharged in stable condition to follow up with previously stated discharge instructions and medications in stable and improved condition. ��������������������������������������������� <ELECTRONICALLY SIGNED> ���������������������������������������� By: Jovani Barkley MD ��������������������������������������������� 08/08/19 1103 1031 [id number] Jovani Barkley MD /nt
== END 2019-07-30 10:56 | disposition home or self-care (01) | DRG 252 ==
LOC: CATH 11:25 → ICU 17:55 → CATH 17:56 → ICU 17:56 → 2N 07-26 22:19 → ENTRNSPT 07-30 10:31 → EDTRNSPTSTS 07-30 10:33 → 2N 07-30 10:56
PROVIDERS: Internal Medicine; Nuclear Medicine Nuclear Cardiology; Nurse Practitioner; Nurse Practitioner Adult Health; ADMIT Internal Medicine Cardiovascular Disease
PROC: 3E05317 Introduction of Other Thrombolytic into Peripheral Artery, Percutaneous Approach (ICD-10-PCS; 2019-07-24)
PROC: B41D1ZZ Fluoroscopy of Aorta and Bilateral Lower Extremity Arteries using Low Osmolar Contrast (ICD-10-PCS; 2019-07-24)
PROC: B4181ZZ Fluoroscopy of Bilateral Renal Arteries using Low Osmolar Contrast (ICD-10-PCS; 2019-07-24)
PROC: 047K3Z1 Dilation of Right Femoral Artery using Drug-Coated Balloon, Percutaneous Approach (ICD-10-PCS; principal; 2019-07-25)
PROC: 3E05317 Introduction of Other Thrombolytic into Peripheral Artery, Percutaneous Approach (ICD-10-PCS; principal; 2019-07-25)
PROC: 30233N1 Transfusion of Nonautologous Red Blood Cells into Peripheral Vein, Percutaneous Approach (ICD-10-PCS; principal; 2019-07-25)
DX: T82.868A Thrombosis due to vascular prosthetic devices, implants and grafts, initial encounter (principal); E43 Unspecified severe protein-calorie malnutrition; D68.59 Other primary thrombophilia; I25.10 Atherosclerotic heart disease of native coronary artery without angina pectoris; I10 Essential (primary) hypertension; D64.9 Anemia, unspecified; J44.9 Chronic obstructive pulmonary disease, unspecified; E78.5 Hyperlipidemia, unspecified; I48.0 Paroxysmal atrial fibrillation; M19.90 Unspecified osteoarthritis, unspecified site; Y83.2 Surgical operation with anastomosis, bypass or graft as the cause of abnormal reaction of the patient, or of later complication, without mention of misadventure at the time of the procedure; I99.8 Other disorder of circulatory system; K21.9 Gastro-esophageal reflux disease without esophagitis; I70.201 Unspecified atherosclerosis of native arteries of extremities, right leg; K64.9 Unspecified hemorrhoids; R50.9 Fever, unspecified; M25.522 Pain in left elbow; M25.572 Pain in left ankle and joints of left foot; Z87.891 Personal history of nicotine dependence; Z90.710 Acquired absence of both cervix and uterus; Z90.49 Acquired absence of other specified parts of digestive tract; Y92.89 Other specified places as the place of occurrence of the external cause
CPT/HCPCS: 10078; 10081; 85076

== ENCOUNTER 2019-10-14 18:04 | Inpatient (IN) | payer OTHER ==
[2019-10-14] VITALS (8 sets, daily range): BP systolic 111–130; BP diastolic 41–97
[~2019-10-14] VITALS: Ht 162.6 cm; Wt 76.7 kg
[~2019-10-14 18:04] MED LIST changes: +AUGMENTIN 875-1 EACH PO; +PREDNISONE 20 M20 MG PO
[2019-10-14 18:49] LABS: HEMATOCRIT 27.3 % (37.0-47.0); HEMOGLOBIN 8.4 gm/dL (12.0-15.0); MCH 20.6 pg (26.0-34.0); MCHC 30.6 g/dL (28.0-37.0); MCV 67.1 fL (80.0-100.0); RBC 4.07 mil/uL (4.20-5.00); RDW 18.5 % (10.5-14.5); WBC 7.6 thou/uL (4.0-11.0)
[2019-10-14 18:58] LABS: CALCIUM 9.3 mg/dL (8.5-10.1); CREATININE 0.9 mg/dL (0.6-1.0); POTASSIUM 3.7 mmol/L (3.5-5.1)
[2019-10-14 19:02] LABS: INR 3.5; PROTIME 36.3 Seconds (9.3-11.4)
[2019-10-15] VITALS (11 sets, daily range): BP systolic 103–130; BP diastolic 40–290
--- NOTE | 2019-10-15 05:20 | NUR ---
PATIENTS CARES WERE ASSUNMED AT 2300. PATIENT WAS ASSESSED. MEDS WERE PASSED/ PATIENT WAS KEPT FLAT UMTIL 0500. PAIN MEDS WERE GIVEN. WALKED PATIENT TO THE RESTROOM AND BACK TO THE BED. PATIENT REQUESTED TO DANGLE AT THE BEDSIDE.
[2019-10-15 06:04] LABS: HEMATOCRIT 24.7 % (37.0-47.0); HEMOGLOBIN 7.6 gm/dL (12.0-15.0); MCH 20.6 pg (26.0-34.0); MCHC 30.6 g/dL (28.0-37.0); MCV 67.3 fL (80.0-100.0); RBC 3.68 mil/uL (4.20-5.00); RDW 18.6 % (10.5-14.5); WBC 7.3 thou/uL (4.0-11.0)
[2019-10-15 06:22] LABS: INR 3.3; PROTIME 34.1 Seconds (9.3-11.4)
--- NOTE | 2019-10-15 12:36 | NUR ---
ASSESSMENT CHARTED. PT ALERT AND ORIENTED. VSS. DENIED HAVING PAIN OR DISCOMFORT. RIGHT GROIN INCISION C/D/I. NO HEMATOMA NOTED. ORDERS GIVEN TO DISCHARGE PT TO HOME. DISCHARGE INSTRUCTIONS GIVEN TO PT. PT VERBERLISED UNDERSTANDING.
== END 2019-10-15 12:39 | disposition home or self-care (01) | DRG 271 ==
LOC: ER 18:04 → EROBS 19:26 → 2N 19:26 → EROBS 19:32 → 2N 22:41 → ENTRNSPT 10-15 12:13 → EDTRNSPTSTS 10-15 12:15 → 2N 10-15 12:39
PROVIDERS: Emergency Medicine Emergency Medical Services; ADMIT Nuclear Medicine Nuclear Cardiology
PROC: 047K3D1 Dilation of Right Femoral Artery with Intraluminal Device, using Drug-Coated Balloon, Percutaneous Approach (ICD-10-PCS; principal; 2019-10-14)
PROC: 04CK3ZZ Extirpation of Matter from Right Femoral Artery, Percutaneous Approach (ICD-10-PCS; 2019-10-14)
PROC: B41D1ZZ Fluoroscopy of Aorta and Bilateral Lower Extremity Arteries using Low Osmolar Contrast (ICD-10-PCS; 2019-10-14)
PROC: B4181ZZ Fluoroscopy of Bilateral Renal Arteries using Low Osmolar Contrast (ICD-10-PCS; 2019-10-14)
DX: T82.856A Stenosis of peripheral vascular stent, initial encounter (principal); D62 Acute posthemorrhagic anemia; I25.10 Atherosclerotic heart disease of native coronary artery without angina pectoris; I73.9 Peripheral vascular disease, unspecified; I10 Essential (primary) hypertension; E78.00 Pure hypercholesterolemia, unspecified; J44.9 Chronic obstructive pulmonary disease, unspecified; G89.29 Other chronic pain; M19.90 Unspecified osteoarthritis, unspecified site; D64.9 Anemia, unspecified; Y83.8 Other surgical procedures as the cause of abnormal reaction of the patient, or of later complication, without mention of misadventure at the time of the procedure; Z79.899 Other long term (current) drug therapy; Z79.01 Long term (current) use of anticoagulants; Z95.5 Presence of coronary angioplasty implant and graft; Z90.49 Acquired absence of other specified parts of digestive tract; Z90.710 Acquired absence of both cervix and uterus; Z87.891 Personal history of nicotine dependence; Y92.89 Other specified places as the place of occurrence of the external cause
CPT/HCPCS: 10081

== ENCOUNTER 2019-12-16 12:07 | Inpatient (IN) | payer OTHER ==
[~2019-12-16] VITALS: Ht 162.6 cm; Wt 73.2 kg
--- NOTE | ~2019-12-16 | HC ---
[facility] [place] [address] CONSULTATION Name: MANSI CEDENO Room #: 216-P [facility] IN [facility]#: [id number] Admission: 12/16/19 Attend Phys: Jaiden Gutiérrez MD Discharge: Date of : 46 Report #: [id number] THIS REPORT FOR: //name// CC: YARI physician/PCP Jaiden Gutiérrez DATE OF SERVICE: 12/17/2019 We were asked to see the patient by Dr. Hansen. HISTORY OF PRESENT ILLNESS: The patient is a 69-year-old with lower extremity arterial occlusive disease. The patient has had multiple stents with restenosis in the right superficial femoral artery that most recently were reopened in September. The patient is admitted now with abdominal wall discomfort and has a rectus sheath hematoma on the right side. The patient states that she was coughing over the weekend and this led to this current discomfort. Other medical problems include chronic obstructive pulmonary disease, coronary artery disease, hypercholesterolemia. ALLERGIES: None known. MEDICATIONS: At home, simvastatin, lisinopril, Plavix, warfarin, metoprolol, Augmentin and prednisone. SOCIAL HISTORY: Former smoker. The patient states she quit 2 years ago. FAMILY HISTORY: No history of precocious coronary disease. REVIEW OF SYSTEMS: CONSTITUTIONAL: No fever or chills. EYES: Wears glasses. HEENT: No headache. No nasal discharge. No hearing issues. RESPIRATORY: No new shortness of breath. CARDIAC: No chest pain, no palpitations. VASCULAR: The patient states that she is walking without difficulty currently. GASTROINTESTINAL: No nausea or vomiting. Does have abdominal wall discomfort. GENITOURINARY: No urgency or frequency. MUSCULOSKELETAL: No bone or joint pain. SKIN: No rash or infection. NEUROLOGIC: No motor or sensory dysfunction. PHYSICAL EXAMINATION: VITAL SIGNS: Temperature 36.9, heart rate 75, respiratory rate 18, blood pressure 117/59, O2 sat 98 on room air. HEENT: Normocephalic. Pupils are round, equal. No scleral icterus, no arcus. [facility] [address] [place] [address] CONSULTATION Name: MANSI CEDENO Valerie Room #: 216-[facility] IN .R.#: [id number] Admission: 12/16/19 Attend Phys: Jaiden Gutiérrez MD Discharge: Date of : 46 Report #: [id number] NECK: No mass, no bruit. CHEST: Clear to auscultation. HEART: Rhythm regular. I hear no murmurs. ABDOMEN: Soft in general, but tender right lower quadrant, has a relatively large pannus. VASCULAR: I did not feel femoral pulses, but popliteal pulses are 2+ bilaterally. SKIN: No rash or infection. NEUROLOGIC: No motor or sensory dysfunction. MUSCULOSKELETAL: No bone or joint asymmetry or deformity. IMPRESSION: I discussed the patient's vascular situation with her. The patient states that she is weary of having repeat procedures for thrombotic or occluded lower extremity grafts. I have advised the patient that we could evaluate her for femoral popliteal bypass, but currently it appears that the superficial femoral arteries are patent and I see no indication at this point for surgery. Certainly if there is a "next time," then other options would be available, but they would be more invasive than the current procedures and still have a risk of failure. Risks and details of lower extremity arterial occlusive surgery (femoral popliteal bypass) were discussed. These include but are not limited to bleeding, infection, anesthesia risks, and failure of the grafts. The patient understands and is currently most vexed with her abdominal wall discomfort, which I have advised her is a rectus sheath hematoma and not a vascular surgical problem per se, but it is one that is inextricably bound with the blood thinning medicine that she is on. It is a privilege to participate in this challenging patient's care. Thank you for the consult. By: [id number] Antoni Solis MD /nt
[2019-12-16 16:45] VITALS: BP 147/71
--- NOTE | 2019-12-16 18:33 | NUR ---
PT ARRIVED TO UNIT APPROX 1700 VIA EMS FROM [facility]. PT IS MONITORED ON TELE. YULISSA ESQUIVEL ORIENTED X4, AND ABLE TO MAINTAIN 02 SAT >90 ON RA. COMPLETED COMPUTER PORTION OF ADMISSION TO BEST ABILITY. STILL WAITING ON ORDERS FROM DR PEPE. DR PEPE DID SEE PT AT APPROX 1800. PT COMPLAINS OF PAIN. NAD NOTED. WILL CONT. TO MONITOR.
[2019-12-16 19:16] VITALS: BP 147/57
[2019-12-17] VITALS (8 sets, daily range): BP systolic 117–147; BP diastolic 51–62
--- NOTE | 2019-12-17 05:09 | NUR ---
ASSUMED PT CARE AROUND 191. PT WAS RESTING IN BED WITH C/O ABD PAIN. COMPLETED MED RECONCILE AND ADMINISTERED MEDICATIONS PER ORDERS. PT WAS SEEN LOOKING FOR HER "PUFFER" AND ADVISED PT THAT SHE COULD NOT KEEP HER HOME MEDICATIONS IN THE ROOM WITH HER. MEDICATIONS WERE BAGGED AND SENT TO PHARMACY. A COPY OF THE PAPERWORK AND RECEIPT FROM THE BAG ARE IN THE PT CHART. PT RESTED THRU NIGHT WITH MINIMAL INTERRUPTIONS. WILL CONTINUE TO MONITOR PT AND KEEP PAIN CONTROLLED.
[2019-12-17 05:36] LABS: HEMATOCRIT 26.4 % (37.0-47.0); HEMOGLOBIN 8.1 gm/dL (12.0-15.0); MCH 22.2 pg (26.0-34.0); MCHC 30.7 g/dL (28.0-37.0); MCV 72.3 fL (80.0-100.0); RBC 3.66 mil/uL (4.20-5.00); RDW 22.7 % (10.5-14.5); WBC 6.3 thou/uL (4.0-11.0)
[2019-12-17 05:41] LABS: APTT 37.2 Seconds (24.5-32.8); INR 1.4
[2019-12-17 05:49] LABS: ALBUMIN 2.8 g/dL (3.4-5.0); CALCIUM 8.8 mg/dL (8.5-10.1); CREATININE 0.7 mg/dL (0.6-1.0); MAGNESIUM 1.8 mg/dL (1.8-2.4); POTASSIUM 3.9 mmol/L (3.5-5.1); TOTAL BILIRUBIN 0.4 mg/dL (<0.1-1.0); TOTAL PROTEIN 6.4 g/dL (6.4-8.2)
--- NOTE | 2019-12-17 12:02 | NUR ---
Met with patient who resides in independent home in [place] with all needs on one level. She has a walker that was he mothers that she can use if needed but she has never needed. Patient independent with adls. PCP Dr Sanchez. Family lives up the road and supportive. Patient motivated for dc. Casemgt following for dc needs
[2019-12-17 16:27] LABS: HEMATOCRIT 28.8 % (37.0-47.0); HEMOGLOBIN 8.8 gm/dL (12.0-15.0)
--- NOTE | 2019-12-17 19:10 | NUR ---
Report given to RN assuming care of patient. Pt went to radiolgy this morning for CTA of abdomen. Call from blood bank during change of shift report indicating platelets are ready for transfusion. Medicated for abdominal pain with only partial relief today. Calls placed to Dr Torres's pager to get additional pain medication. Awaiting return call.
[2019-12-18 00:43] VITALS: BP 133/51
[2019-12-18 04:01] VITALS: BP 126/45
[2019-12-18 07:45] LABS: HEMATOCRIT 26.5 % (37.0-47.0); HEMOGLOBIN 8.1 gm/dL (12.0-15.0); MCH 22.2 pg (26.0-34.0); MCHC 30.6 g/dL (28.0-37.0); MCV 72.6 fL (80.0-100.0); RBC 3.65 mil/uL (4.20-5.00); RDW 22.4 % (10.5-14.5); WBC 5.9 thou/uL (4.0-11.0)
[2019-12-18 07:52] LABS: CALCIUM 9.1 mg/dL (8.5-10.1); CREATININE 0.7 mg/dL (0.6-1.0); POTASSIUM 3.8 mmol/L (3.5-5.1)
[2019-12-18 07:57] LABS: ALBUMIN 2.9 g/dL (3.4-5.0); MAGNESIUM 1.8 mg/dL (1.8-2.4); PHOSPHORUS 2.9 mg/dL (2.5-4.9)
[2019-12-18 08:00] VITALS: BP 133/52
[2019-12-18 08:01] LABS: PROTIME 10.7 Seconds (9.3-11.4)
[2019-12-18 10:30] VITALS: BP 111/44
[2019-12-18 14:40] LABS: HEMATOCRIT 27.1 % (37.0-47.0); HEMOGLOBIN 8.2 gm/dL (12.0-15.0)
[2019-12-18 15:30] VITALS: BP 112/49
--- NOTE | 2019-12-18 18:34 | NUR ---
PT UP AD [facility], PRN PAIN MEDICATIONS GIVEN PER ORDER. PT STATES SHE IS GOING HOME TOMORROW COME HELL OR HIGH WATER. PT SHOWERED TODAY AND AMBULATED.
[2019-12-18 19:43] VITALS: BP 120/58
--- NOTE | 2019-12-19 00:35 | NUR ---
ASSESSMENT CHARTED, MEDS GIVEN CHARTED. ALERT AND ORIENTED, PATIENT IS UP AT [place] IN ROOM. PATIENT NPO AT MIDNIGHT FOR CT IN THE AM. PT C/O PAIN PAIN IN RIGHT ABDOMEN. PLAN OF CARE IS TO HAVE CT IN AM TO DETERMINE IF BLEED HAS STOPPED. PATIENT REFUSED SENNA AND MIRALAX THIS EVENING STATING THAT SHE HAD A BOWEL MOVEMENT EARLIER IN THE DAY. PATIENT IS PLANNING ON GOING HOME TOMORROW.
[2019-12-19 04:56] VITALS: BP 138/63
[2019-12-19 08:00] VITALS: BP 137/58
[2019-12-19] MEDS ORDERED: EFFIENT10 MG PO (10:58)
[2019-12-19] MEDS ORDERED: XARELTO10 MG PO (10:58)
[2019-12-19 12:16] LABS: HEMATOCRIT 32.3 % (37.0-47.0); HEMOGLOBIN 9.7 gm/dL (12.0-15.0); MCH 21.8 pg (26.0-34.0); MCV 72.8 fL (80.0-100.0); RBC 4.44 mil/uL (4.20-5.00); RDW 22.8 % (10.5-14.5); WBC 5.9 thou/uL (4.0-11.0)
[2019-12-19 16:00] VITALS: BP 132/62
--- NOTE | 2019-12-19 17:30 | NUR ---
ASSESSMENT CHARTED. PT ALERT AND ORIENTED. VSS. RECEIVED PRN PAIN MED WITH PARTIAL RELIEF. SEEN BY DR PRATT AND DR. LEO. ORDERS NOTED. WILL CONTINUE TO MONITOR.
[2019-12-19 20:28] VITALS: BP 124/49
[2019-12-20 04:30] VITALS: BP 144/71
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
[2019-12-20 05:35] LABS: HEMOGLOBIN 8.9 gm/dL (12.0-15.0); MCH 22.1 pg (26.0-34.0); MCHC 30.7 g/dL (28.0-37.0); MCV 72.2 fL (80.0-100.0); RBC 4.01 mil/uL (4.20-5.00); RDW 22.8 % (10.5-14.5); WBC 6.4 thou/uL (4.0-11.0)
[2019-12-20 08:00] VITALS: BP 133/56
[2019-12-20] MEDS ORDERED: NORCO 5-325 TA1 EAC1 PO (13:33)
[2019-12-20 14:38] VITALS: BP 133/56
--- NOTE | 2019-12-20 15:25 | NUR ---
ASSUMED CARE OF PT APPROX 0715 W/REPORT AT 0707. SHE IS A&0X4 AND IN HUMOROUS SPIRITS. QUESTIONS ABOUT D/C PENDING. ASSURED HER HOW IT NORMALLY WORKS. SHE TOLD FAMILY TO WAIT FOR HER CALL. SEE SEPARATE INTERVENTIONS FOR ASSESSMENTS. DURING D/C DISCOVERED HER HYDROCODONE RX WAS NOT SIGNED, CALLED THE D/C PHYSICIAN AND HE ASKED THAT I CALL ANOTHER HOSPITALIST HE WAS NOW OFF THE PREMISES. REACHED OUT, VIA [employer] TO DR. BONE, TO LET HIM KNOW WE'D NEED A SIGNATURE. PT HAD FAMILY WAITING OUTSIDE OF ED AND DID NOT WANT TO WAIT. BROUGHT HER HOME MEDS BACK FROM PHARMACY WHILE WAITING, HER FAMILY JOKED SHE JUST NEEDED A CIGGARETTE. SENT ANOTHER MESSAGE WE DIDN'T NEED SIGNATURE AND PLACED NOTE IN CHART ON UN-SIGNED RX.WALKED PT OUT TO ED AND FAMILY WAITING WITH ALL HER BELONGINGS AND HOME MEDS
== END 2019-12-20 15:21 | disposition home or self-care (01) | DRG 555 ==
LOC: 2N 12:07
PROVIDERS: Internal Medicine; Internal Medicine Cardiovascular Disease; Surgery; ADMIT Hospitalist
PROC: 30233R1 Transfusion of Nonautologous Platelets into Peripheral Vein, Percutaneous Approach (ICD-10-PCS; principal; 2019-12-17)
DX: M79.81 Nontraumatic hematoma of soft tissue (principal); E43 Unspecified severe protein-calorie malnutrition; I74.3 Embolism and thrombosis of arteries of the lower extremities; I25.10 Atherosclerotic heart disease of native coronary artery without angina pectoris; I73.9 Peripheral vascular disease, unspecified; I10 Essential (primary) hypertension; M54.9 Dorsalgia, unspecified; G89.4 Chronic pain syndrome; E78.5 Hyperlipidemia, unspecified; I65.29 Occlusion and stenosis of unspecified carotid artery; F11.21 Opioid dependence, in remission; M19.90 Unspecified osteoarthritis, unspecified site; D50.9 Iron deficiency anemia, unspecified; Z60.2 Problems related to living alone; E78.00 Pure hypercholesterolemia, unspecified; T45.515A Adverse effect of anticoagulants, initial encounter; G62.9 Polyneuropathy, unspecified; E66.9 Obesity, unspecified; J44.9 Chronic obstructive pulmonary disease, unspecified; Z68.27 Body mass index [BMI] 27.0-27.9, adult; Z95.820 Peripheral vascular angioplasty status with implants and grafts; Z79.899 Other long term (current) drug therapy; Z87.891 Personal history of nicotine dependence; Z79.01 Long term (current) use of anticoagulants; Z79.51 Long term (current) use of inhaled steroids; Z95.5 Presence of coronary angioplasty implant and graft; Z90.710 Acquired absence of both cervix and uterus; Z90.49 Acquired absence of other specified parts of digestive tract; Z72.89 Other problems related to lifestyle; Y92.89 Other specified places as the place of occurrence of the external cause
CPT/HCPCS: 10081

== ENCOUNTER → 2020-01-26 | Outpatient (CLI) | payer OTHER ==
[~2020-01-26] MED LIST changes: +EFFIENT10 MG PO; +NORCO 5-325 TA1 EAC1 PO; +XARELTO10 MG PO
== END ==
LOC: SJCVCIMAG 12-23 12:53
DX: I70.201 Unspecified atherosclerosis of native arteries of extremities, right leg (principal); M79.661 Pain in right lower leg; M79.89 Other specified soft tissue disorders; J44.9 Chronic obstructive pulmonary disease, unspecified; R07.9 Chest pain, unspecified; R06.02 Shortness of breath; Z95.820 Peripheral vascular angioplasty status with implants and grafts

== ENCOUNTER → 2020-02-11 | Outpatient (CLI) | payer OTHER ==
[~2020-02-11] VITALS: Ht 162.6 cm; Wt 70.0 kg
[2020-02-11 07:26] LABS: HEMATOCRIT 31.4 % (37.0-47.0); HEMOGLOBIN 9.7 gm/dL (12.0-15.0); MCH 22.2 pg (26.0-34.0); MCHC 30.8 g/dL (28.0-37.0); MCV 72.1 fL (80.0-100.0); RBC 4.35 mil/uL (4.20-5.00); WBC 9.1 thou/uL (4.0-11.0)
[2020-02-11 07:33] VITALS: BP 142/38
[2020-02-11 07:35] LABS: CALCIUM 9.8 mg/dL (8.5-10.1); CREATININE 0.9 mg/dL (0.6-1.0); POTASSIUM 4.3 mmol/L (3.5-5.1)
--- NOTE | 2020-02-11 12:33 | NUR ---
PT PLACED ON BEDPAN.
--- NOTE | 2020-02-12 07:50 | EKG ---
[facility] [place] [address] ELECTROCARDIOGRAM REPORT Name: MANSI CEDENO [id number] Admission: 02/11/20 Attend Phys: Reginaldo Hansen MD, Discharge: Date of : 46 Report #: [id number] THIS REPORT FOR: cc: YARI - Janny family physician/PCP YARI - Janny family physician/PCP Olivier Lema MD [facility] THIS REPORT FOR: //name// [facility] Test Date: 2020-02-11 Test Time: 07:30:58 Pat Name: MANSI CEDENO Department: Room: Gender: Motel Maid: Jose LYON : 1950 Requested By: Reginaldo Hansen Order Number: [id number] MD: Olivier Lema Measurements Intervals [place] Rate: 69 P: 34 WA: 154 QRS: 52 QRSD: 100 T: 32 QT: 404 QTc: 433 Interpretive Statements Sinus rhythm Normal tracing Compared to ECG 07/25/2019 07:52:18 No significant change was found Electronically Signed On 02-12-2020 7:49:02 CDT by Olivier Lema [email or web address] <ELECTRONICALLY SIGNED> By: Olivier Lema MD, [facility] 02/12/20 0749 9 Olivier Lema MD, [facility] /EPI
--- NOTE | 2020-02-13 11:01 | CATHLAB ---
[facility] [place] [address] INVASIVE PROCEDURE REPORT Name: MANSI CEDENO Room #: ROEL LatifDoris#: [id number] Admission: 02/11/20 Attend Phys: Reginaldo Hansen MD, Discharge: Date of : 46 Report #: [id number] THIS REPORT FOR: cc: FAM - No family physician/PCP FAM - No family physician/PCP Reginaldo Hansen MD [facility] ~ APPROVED REPORT Study performed: 02/11/2020 09:24:08 Patient Details Patient Status: Out-Patient Room #: The patient is a 69 year-old female Event Personnel Juwan Casarez Interventional Radiologist, Reginaldo Hansen Slice Cutting Machine Operator Helper, Vane Razo RN RN, Sweta Tineo RTR, KAMRYN Lord, Ayana Hernandez Monitor Procedures Performed Left Heart Cath w/or w/o Coronaries [id number] [facility] [address] Initial Mod Sed Same Phys/QHP [facility] 120803 53262 Mod Sed Same Phys/QHP 270414 Hemostasis w/ Mynx Indication Chest pain Procedure Narrative A SHEATH BRITE-TIP 6F X 11CM ([id number]) sheath was inserted into the LFA 5F^. Coronary angiography was performed using coronary diagnostic catheters. The right coronary system was accessed and visualized with a jr4 catheter. The left coronary system was accessed and visualized with a jl4 catheter. The left ventricle was accessed and visualized with a str pig catheter. Left ventriculogram was performed in 30 degree projection. Closure device was deployed with a Fr MYNXGRIP 6/7F [id number]. The patient tolerated the procedure well and there were no complications associated with the procedure. There was no hematoma. Intraoperative Conscious Sedation Sedation start time: 09 Case end Time: 101 Fentanyl 5025 mcg Versed 0.5 mg [facility] [address] [place] [address] INVASIVE PROCEDURE REPORT Name: MANSI CEDENO Room #: ROEL Shultz#: [id number] Admission: 02/11/20 Attend Phys: Reginaldo Hansen, Discharge: Date of : 46 Report #: [id number] Fluoro Time: 2.44 minutes Dose: DAP 2662.90 cGycm2 328 mGy Contrast Type and Amount: Visipaque 106 ml Hemodynamics The aortic pressure is 137/58 mmHg with a mean of 90 mmHg. The left ventricular pressure is 151/11 mmHg with a mean of mmHg. The left ventricular end diastolic pressure is 18 mmHg. Conclusion 1. Normal low ventricular size and systolic function EF 55 to 60% #2 left main mildly calcified giving rise to LAD and circumflex widely patent #3 LAD extends around the apex proximal calcification diffuse distal disease no occlusive disease #4 circumflex OM also mildly diseased throughout nondominant but moderate in distribution. #5 dominant right coronary with an eccentric proximal lesion of 70% proximal to her prior stent. Progressed slightly moderate ostial disease also noted treat medically will follow closely. #5 the ostial PDA at the bifurcation 60 to 70% eccentric lesion posterior lateral branch is moderately large free of disease Recommendations and plan: Continue aggressive risk factor modification. We will follow this RCA stenosis. Holding on current intervention. Follow-up will be arranged. <ELECTRONICALLY SIGNED> By: Reginaldo Hansen MD, FACC 02/13/20 1100 1100 99 Reginaldo Hansen MD, FACC /INF
== END | disposition home or self-care (01) ==
LOC: CATH 06:30
PROVIDERS: Internal Medicine Cardiovascular Disease
DX: I73.9 Peripheral vascular disease, unspecified (principal); I70.1 Atherosclerosis of renal artery; I25.10 Atherosclerotic heart disease of native coronary artery without angina pectoris; I10 Essential (primary) hypertension; E78.00 Pure hypercholesterolemia, unspecified; J44.9 Chronic obstructive pulmonary disease, unspecified; Z72.0 Tobacco use; Z90.710 Acquired absence of both cervix and uterus

== ENCOUNTER 2020-03-23 06:29 | Inpatient (IN) | payer OTHER ==
[2020-03-16 09:23] LABS: BASOPHILS 0.7 % (0.0-2.0); EOSINOPHILS 2.5 % (0.0-3.0); HEMATOCRIT 28.5 % (37.0-47.0); HEMOGLOBIN 8.9 gm/dL (12.0-15.0); LYMPHOCYTES 29.2 % (24.0-44.0); MCH 22.4 pg (26.0-34.0); MCHC 31.3 g/dL (28.0-37.0); MCV 71.6 fL (80.0-100.0); MONOCYTES 9.9 % (1.0-8.0); PLATELET COUNT 374 thou/uL (150-400); POLYS 57.7 % (36.0-66.0); RBC 3.98 mil/uL (4.20-5.00); RDW 17.1 % (10.5-14.5)
[2020-03-16 09:37] LABS: ALBUMIN 3.3 g/dL (3.4-5.0); CALCIUM 9.1 mg/dL (8.5-10.1); POTASSIUM 4.9 mmol/L (3.5-5.1); TOTAL BILIRUBIN 0.4 mg/dL (<0.1-1.0); TOTAL PROTEIN 6.7 g/dL (6.4-8.2)
[2020-03-16 09:40] LABS: APTT 28.5 Seconds (24.5-32.8); PROTIME 9.8 Seconds (9.3-11.4)
[2020-03-16 09:48] LABS: URINE BILIRUBIN NEGATIVE (Negative); URINE BLOOD NEGATIVE (Negative); URINE CLARITY CLEAR; URINE COLOR YELLOW; URINE GLUCOSE-RANDOM* NEGATIVE (Negative); URINE KETONES NEGATIVE (Negative); URINE NITRITE-REFLEX NEGATIVE (Negative); URINE PROTEIN (DIPSTICK) NEGATIVE (Negative); URINE SPECIFIC GRAVITY 1.025 (1.005-1.035); URINE UROBILINOGEN 0.2 E.U./dl (0.2-1.0)
[2020-03-16 09:53] LABS: URINE LEUKOCYTES-REFLEX 1+ (Negative)
[2020-03-16 10:14] LABS: BACTERIA-REFLEX 1-9 Few /HPF (None Seen); CASTS None Seen /LPF (None Seen); CRYSTALS None Seen /LPF (None Seen); SQUAMOUS 0-3 Few /LPF (0-3); URINE RBC None Seen /HPF (0-2); URINE WBC-REFLEX 0-5 Rare /HPF (0-5)
[2020-03-16 10:20] LABS: ANISOCYTOSIS 2+; MICROCYTES 1+; PLATELET ESTIMATE NORMAL
--- NOTE | 2020-03-16 10:54 | EKG ---
[facility] [place] [address] ELECTROCARDIOGRAM REPORT Name: MANSI CEDENO Room #: PRE IN M.R.#: [id number] Admission: Attend Phys: Antoni Solis MD Discharge: Date of : 46 Report #: [id number] THIS REPORT FOR: cc: YARI - No family physician/PCP FAM - No family physician/PCP Moe Farr MD ~ THIS REPORT FOR: //name// [facility] Test Date: 2020-03-16 Test Time: 09:25:26 Pat Name: MANSI CEDENO Department: Room: Gender: Mesh Worker: [facility] : 1950 Requested By: Antoni Solis Order Number: [id number] MD: Moe Farr Measurements Intervals [place] Rate: 63 P: 10 CT: 144 QRS: 49 QRSD: 99 T: 48 QT: 420 QTc: 430 Interpretive Statements Sinus rhythm Baseline wander in lead(s) V6 Compared to ECG 02/11/2020 07:30:58 No significant changes Electronically Signed On 03-16-2020 10:52:49 CDT by Moe Farr [email or web address] <ELECTRONICALLY SIGNED> By: Moe Farr MD 03/16/20 1052 4 4 Moe Farr MD /EPI
[~2020-03-23] VITALS: Ht 162.6 cm; Wt 79.9 kg
[2020-03-23] VITALS (24 sets, daily range): BP systolic 102–151; BP diastolic 31–57
[~2020-03-23 06:29] MED LIST changes: +LISINOPRIL20 MG PO; +TOPROL XL50 MG PO; -VENTOLIN HFA INH8 GM; +XARELTO2.5 MG PO; +ZOCOR 20 MG TAB20 M1 PO
[2020-03-24] VITALS (41 sets, daily range): BP systolic 103–164; BP diastolic 37–82
[2020-03-24 14:00] LABS: HEMATOCRIT 24.8 % (37.0-47.0); HEMOGLOBIN 7.7 gm/dL (12.0-15.0); MCH 22.3 pg (26.0-34.0); MCV 71.9 fL (80.0-100.0); RBC 3.45 mil/uL (4.20-5.00); RDW 17.5 % (10.5-14.5); WBC 10.7 thou/uL (4.0-11.0)
[2020-03-24 14:11] LABS: CALCIUM 8.4 mg/dL (8.5-10.1); POTASSIUM 3.7 mmol/L (3.5-5.1)
[2020-03-25 04:56] VITALS: BP 125/53
[2020-03-25 08:00] VITALS: BP 119/45
[2020-03-25 12:00] VITALS: BP 133/54
[2020-03-25 16:00] VITALS: BP 130/55
[2020-03-25 19:36] VITALS: BP 136/59
[2020-03-26 04:11] VITALS: BP 150/68
[2020-03-26 07:36] VITALS: BP 133/57
[2020-03-26 10:48] LABS: CALCIUM 8.8 mg/dL (8.5-10.1); CREATININE 0.9 mg/dL (0.6-1.0); MAGNESIUM 1.9 mg/dL (1.8-2.4); POTASSIUM 3.6 mmol/L (3.5-5.1); TOTAL BILIRUBIN 0.6 mg/dL (<0.1-1.0); TOTAL PROTEIN 6.7 g/dL (6.4-8.2)
[2020-03-26 11:30] VITALS: BP 144/52
--- NOTE | 2020-03-26 12:08 | EKG ---
[facility] [place] [address] ELECTROCARDIOGRAM REPORT Name: MANSI CEDENO Room #: 209- ADM IN M.R.#: [id number] Admission: 03/23/20 Attend Phys: Antoni Solis MD Discharge: Date of : 46 Report #: [id number] THIS REPORT FOR: cc: YARI Soliman family physician/PCP YARI - Janny family physician/PCP Moe Farr MD ~ THIS REPORT FOR: //name// [facility] Test Date: 2020-03-26 Test Time: 11:13:00 Pat Name: MANSI CEDENO Department: Room: 209 Gender: F Director Motion Picture: RIMA : 1950 Requested By: Manisha Daniel Order Number: [id number] MD: Moe Farr Measurements Intervals [place] Rate: 61 P: 40 MD: 133 QRS: 33 QRSD: 93 T: 24 QT: 425 QTc: 428 Interpretive Statements Sinus rhythm Compared to ECG 03/16/2020 09:25:26 No significant changes Electronically Signed On 03-26-2020 12:06:44 CDT by Moe Farr [email or web address] <ELECTRONICALLY SIGNED> By: Moe Farr MD 03/26/20 1206 1113 1113 Moe aFrr MD /EPI
--- NOTE | 2020-03-26 14:20 | 2DMMODE ---
[facility] [place] [address] 2 D/M-MODE ECHOCARDIOGRAM Name: MANSI CEDENO Room #: 209-P ADM IN M.R.#: [id number] Admission: 03/23/20 Attend Phys: Antoni Solis MD Discharge: Date of : 46 Report #: [id number] THIS REPORT FOR: cc: FAM - No family physician/PCP FAM - No family physician/PCP Reginaldo Hansen MD [facility] ~ APPROVED REPORT Study performed: 03/26/2020 13:27:43 EXAM: Comprehensive 2D, Doppler, and color-flow Echocardiogram Patient Location: Bedside Room #: 209 Status: routine BSA: 1.85 HR: 84 bpm BP: 133/57 mmHg Rhythm: NSR Other Information Study Quality: Adequate Indications Arrhythmia COPD CAD Hypertension/HDD 2D Dimensions RVDd: 34.26 mm IVSd: 8.72 (7-11mm) LVOT Diam: 22.17 (18-24mm) LVDd: 54.45 mm PWd: 9.04 (7-11mm) Ascending Ao: 26.51 (22-36mm) LVDs: 36.97 (25-40mm) Aortic Root: 25.90 mm IVC: 18.00 mm Volumes Left Atrial Volume (Systole) Single Plane 4CH: 50.82 mL Single Plane 2CH: 60.28 mL LA ESV Index: 33.00 mL/m2 Aortic Valve AoV Peak Roque.: 1.65 m/s [facility] [address] [place] [address] 2 D/M-MODE ECHOCARDIOGRAM Name: MANSI CEDENO Room #: 209-P [facility] IN M.R.#: [id number] Admission: 03/23/20 Attend Phys: Antoni Solis MD Discharge: Date of : 46 Report #: [id number] Peak Gr.: 10.94 mmHg LVOT Max P.92 mmHg LVOT Max V: 1.11 m/s LAVONNE Vmax: 2.59 cm2 Mitral Valve E/A Ratio: 1.3 MV Decel. Time: 180.07 ms MV E Max Roque.: 1.26 m/s MV A Roque.: 0.96 m/s MV PHT: 52.22 ms IVRT: 73.82 ms Pulmonary Valve PV Peak Roque.: 1.07 m/s PV Peak Gr.: 4.58 mmHg Pulmonary Vein P Vein S: 0.89 m/s P Vein A: 0.26 m/s P Vein D: 0.66 m/s P Vein A Dur.: 83.0 msec P Vein S/D Ratio: 1.35 Left Ventricle The left ventricle is normal size. There is normal LV segmental wall motion. There is normal left ventricular wall thickness. Left ventricular systolic function is normal. The left ventricular ejection fraction is within the normal range. LVEF is 55-60%. The left ventricular diastolic function is normal. Right Ventricle The right ventricle is normal size. The right ventricular systolic function is normal. Atria The left atrium size is normal. The right atrium size is normal. Aortic Valve The aortic valve is normal in structure. No aortic regurgitation is present. There is no aortic valvular stenosis. Mitral Valve The mitral valve is normal in structure. Trace to mild mitral regurgitation. No evidence of mitral valve stenosis. Tricuspid Valve The tricuspid valve is normal in structure. There is no tricuspid valve regurgitation noted. [facility] [place] [address] 2 D/M-MODE ECHOCARDIOGRAM Name: MANSI CEDENO Room #: 209-P [facility] IN M.R.#: [id number] Admission: 03/23/20 Attend Phys: Antoni Solis MD Discharge: Date of : 46 Report #: [id number] Pulmonic Valve The pulmonary valve is normal in structure. There is no pulmonic valvular regurgitation. Great Vessels The aortic root is normal in size. IVC is normal in size and collapses >50% with inspiration. Pericardium There is no pericardial effusion. <Conclusion> The left ventricle is normal size. LVEF is 55-60%. The left ventricular diastolic function is normal. The right ventricle is normal size. The left atrium size is normal. The aortic valve is normal in structure. Trace to mild mitral regurgitation. There is no tricuspid valve regurgitation noted. The aortic root is normal in size. There is no pericardial effusion. <ELECTRONICALLY SIGNED> By: Reginaldo Hansen MD, FACC 03/26/20 1419 18 18 Reginaldo Hansen MD, FAC /INF
[2020-03-26 15:00] VITALS: BP 144/52
[2020-03-26 17:00] VITALS: BP 136/55
[2020-03-26 19:20] VITALS: BP 160/62
[2020-03-27 00:20] VITALS: BP 113/55
[2020-03-27 03:31] VITALS: BP 132/67
[2020-03-27 07:24] VITALS: BP 128/67
[2020-03-27 11:06] VITALS: BP 131/71
[2020-03-27 15:25] VITALS: BP 144/52
--- NOTE | 2020-03-29 13:29 | O ---
[facility] [place] [address] OPERATIVE REPORT Name: MANSI CEDENO Room #: 209-P [facility] IN M.R.#: [id number] Admission: 03/23/20 Attend Phys: Antoni Solis MD Discharge: 03/27/20 Date of : 46 Report #: [id number] THIS REPORT FOR: cc: YARI - Janny family physician/PCP YARI - Janny family physician/PCP Antoni Solis MD ~ CC: YARI physician/PCP Antoni Solis DATE OF SERVICE: 03/24/2020 PREOPERATIVE DIAGNOSIS: Lower extremity arterial occlusive disease, right superficial femoral artery occlusion. POSTOPERATIVE DIAGNOSIS: Lower extremity arterial occlusive disease, right superficial femoral artery occlusion. OPERATION: Right femoral to below knee popliteal artery bypass with reversed autogenous greater saphenous vein. SURGEON: Antoni Solis MD ACCOUNT UNDERWRITER: JOHANNE Samuels. ANESTHESIA: General. INDICATIONS: The patient is a 69-year-old with lower extremity arterial occlusive disease. The patient has occlusion of a previously placed right superficial femoral artery stent graft and presents with rest pain and nonhealing lesion of the right fourth toe. FINDINGS AND TECHNIQUE: After general anesthesia was established, an incision was made below the knee to expose the saphenous vein at this area. The vein was preserved and the incision was deepened to expose below the knee popliteal artery. An incision was made in the right groin to expose the common deep and superficial femoral arteries. A nice length of soft common femoral was isolated for use as our proximal site. Through the same incision, the central end of the greater saphenous vein was identified and dissected and then dissection was continued distally to harvest the vein through interrupted incisions. Prior to occluding the vein, heparin was given. The proximal end of the vein was oversewn at the saphenofemoral junction and the vein was reversed and used as a conduit. The reversed end of the vein was sewn to the side of the common femoral artery then the vein was [facility] [address] [place] [address] OPERATIVE REPORT Name: MILTON CEDENODOMINICK Room #: 209-P [facility] IN M.R.#: [id number] Admission: 03/23/20 Attend Phys: Antoni Solis MD Discharge: 03/27/20 Date of : 46 Report #: [id number] brought through the tunnel, making sure that no twists or kinks were present. The distal end was sewn to the popliteal artery below the knee. Flow was established and good flow was ascertained with the Doppler and with the flow probe. At this point, an arteriogram was taken that showed no kinks and no occlusions within the vein. Flow probe was used at the end, which showed good flow and flow of approximately 56 mL per minute. A 25 mg of protamine was given to reverse the heparin. Hemostasis was ascertained. Two 19 [place] drains were brought through separate stab wounds and then the incisions were closed in layers. The patient was taken to the recovery area in good condition with strong Doppler signal distally and a hyperemic foot. All counts reported as correct. <ELECTRONICALLY SIGNED> By: Antoni Solis MD 03/29/20 1329 0740 0800 Atnoni Solis MD /nt
== END 2020-03-27 16:28 | disposition home health service (06) | DRG 253 ==
LOC: ICU 06:29 → TBA 06:29 → PRE 08:37 → ICU 13:34 → 2N 03-24 15:55
PROVIDERS: Nurse Practitioner Adult Health; Physician Assistant; ADMIT Surgery Vascular Surgery
DX: I77.1 Stricture of artery (principal); E44.1 Mild protein-calorie malnutrition; D68.69 Other thrombophilia; I77.9 Disorder of arteries and arterioles, unspecified; I73.89 Other specified peripheral vascular diseases; I70.201 Unspecified atherosclerosis of native arteries of extremities, right leg; J44.9 Chronic obstructive pulmonary disease, unspecified; I25.10 Atherosclerotic heart disease of native coronary artery without angina pectoris; E78.5 Hyperlipidemia, unspecified; I10 Essential (primary) hypertension; Z95.5 Presence of coronary angioplasty implant and graft; Z88.8 Allergy status to other drugs, medicaments and biological substances; Z90.710 Acquired absence of both cervix and uterus; Z90.49 Acquired absence of other specified parts of digestive tract; Z87.891 Personal history of nicotine dependence
CPT/HCPCS: 10078; 10081; 10204; 47375; 48888; 50010; 50101; 50386; 50455; 50643; 50953; 51165; 51412; 51481; 52138; 52287; 54118; 56524; 56526; 56527; 56528; 56534; 56668; 56760; 57092; 57093; 57167; 57242; 62110; 62900; 70005

== ENCOUNTER → 2020-06-15 | Outpatient (CLI) | payer OTHER | LOC: SJCVCIMAG 08:50 | PROVIDERS: ATTEND Internal Medicine Cardiovascular Disease | DX: T82.898A Other specified complication of vascular prosthetic devices, implants and grafts, initial encounter (principal); I70.202 Unspecified atherosclerosis of native arteries of extremities, left leg; I80.01 Phlebitis and thrombophlebitis of superficial vessels of right lower extremity; I25.10 Atherosclerotic heart disease of native coronary artery without angina pectoris; I10 Essential (primary) hypertension; E78.00 Pure hypercholesterolemia, unspecified; J44.9 Chronic obstructive pulmonary disease, unspecified; M81.0 Age-related osteoporosis without current pathological fracture; Z87.891 Personal history of nicotine dependence; Z79.899 Other long term (current) drug therapy; Z95.820 Peripheral vascular angioplasty status with implants and grafts; Y83.2 Surgical operation with anastomosis, bypass or graft as the cause of abnormal reaction of the patient, or of later complication, without mention of misadventure at the time of the procedure; Y92.89 Other specified places as the place of occurrence of the external cause ==

== ENCOUNTER → 2020-10-13 | Outpatient (CLI) | payer OTHER | LOC: SJCVCIMAG 11:44 | PROVIDERS: ATTEND Emergency Medicine | DX: I73.9 Peripheral vascular disease, unspecified (principal); M79.604 Pain in right leg; T81.49XA Infection following a procedure, other surgical site, initial encounter; Z95.828 Presence of other vascular implants and grafts; Z87.891 Personal history of nicotine dependence; Y83.8 Other surgical procedures as the cause of abnormal reaction of the patient, or of later complication, without mention of misadventure at the time of the procedure; Y92.89 Other specified places as the place of occurrence of the external cause ==

== ENCOUNTER → 2020-11-03 | Outpatient (CLI) | payer OTHER | LOC: HYPER 12:59 | PROVIDERS: ATTEND Emergency Medicine | DX: T81.31XD Disruption of external operation (surgical) wound, not elsewhere classified, subsequent encounter (principal); L97.812 Non-pressure chronic ulcer of other part of right lower leg with fat layer exposed; T14.8XXD Other injury of unspecified body region, subsequent encounter; L08.9 Local infection of the skin and subcutaneous tissue, unspecified; R60.0 Localized edema; E44.1 Mild protein-calorie malnutrition; E66.9 Obesity, unspecified; E78.00 Pure hypercholesterolemia, unspecified; I77.1 Stricture of artery; I73.89 Other specified peripheral vascular diseases; I25.10 Atherosclerotic heart disease of native coronary artery without angina pectoris; I10 Essential (primary) hypertension; J44.9 Chronic obstructive pulmonary disease, unspecified; K21.9 Gastro-esophageal reflux disease without esophagitis; M81.0 Age-related osteoporosis without current pathological fracture; Z68.26 Body mass index [BMI] 26.0-26.9, adult; Z87.891 Personal history of nicotine dependence; X58.XXXD Exposure to other specified factors, subsequent encounter; Y83.8 Other surgical procedures as the cause of abnormal reaction of the patient, or of later complication, without mention of misadventure at the time of the procedure ==

== ENCOUNTER → 2020-12-01 | Outpatient (CLI) | payer OTHER | LOC: HYPER 11:40 | PROVIDERS: ATTEND Emergency Medicine | DX: T81.31XD Disruption of external operation (surgical) wound, not elsewhere classified, subsequent encounter (principal); L97.812 Non-pressure chronic ulcer of other part of right lower leg with fat layer exposed; T14.8XXD Other injury of unspecified body region, subsequent encounter; L08.9 Local infection of the skin and subcutaneous tissue, unspecified; R60.0 Localized edema; E44.1 Mild protein-calorie malnutrition; E66.9 Obesity, unspecified; E78.00 Pure hypercholesterolemia, unspecified; I77.1 Stricture of artery; I73.89 Other specified peripheral vascular diseases; I25.10 Atherosclerotic heart disease of native coronary artery without angina pectoris; I10 Essential (primary) hypertension; J44.9 Chronic obstructive pulmonary disease, unspecified; K21.9 Gastro-esophageal reflux disease without esophagitis; M81.0 Age-related osteoporosis without current pathological fracture; Z68.26 Body mass index [BMI] 26.0-26.9, adult; Z87.891 Personal history of nicotine dependence; X58.XXXD Exposure to other specified factors, subsequent encounter; Y83.8 Other surgical procedures as the cause of abnormal reaction of the patient, or of later complication, without mention of misadventure at the time of the procedure ==